=== PATIENT | male | born 1930 | race African-American/Black ===

== ENCOUNTER 2016-03-17 08:49 | Outpatient (CLI) | payer MEDICARE ==
[2016-03-17 09:33] LABS: Hemoglobin A1c 5.1 % (4.0-6.0)
[2016-03-17 09:40] LABS: #Basophils 0.1 thou/uL (0.0-0.2); #Eosinphils 0.2 thou/uL (0.0-0.7); #Lymphocytes 1.1 thou/uL (1.20-3.40); #Monocytes 0.5 thou/uL (0.11-0.59); #Neutrophils 3.2 thou/uL (1.40-6.50); %Basophils 1.9 % (0.0-1.0); %Lymphocytes 21.9 % (21.0-51.0); %Monocytes 10.4 % (0.0-10.0); %Neutrophils 62.8 % (42.0-75.0); Anisocytosis SLIGHT = 6-15 cells (100X) (0-5/hpf); Hemoglobin 11.5 g/dL (14.0-18.0); Large Platelets SLIGHT; MDiff Complete? YES; Macrocytosis SLIGHT = 6-15 cells (100X) (0-5/hpf); Mean Corpuscular HGB CONC 32.8 g/dL (32.0-36.0); Mean Corpuscular Hemoglobin 34.8 pg (27.0-31.0); PLT Morphology Comment Appears Decreased; Platelet Count 106 thou/uL (130-400); RBC Distribution Width 13.5 % (11.5-14.5); Red Blood Cell (RBC) Count 3.31 mill/uL (4.70-6.10); White Blood Cell (WBC) Count 5.1 thou/uL (4.8-10.8)
[2016-03-17 09:44] LABS: AST (SGOT) 25 U/L (5-34); Albumin 3.9 g/dL (3.4-4.8); Alkaline Phosphatase 104 U/L (40-150); Anion Gap 13 mmol/L (10-20); BUN (Urea Nitrogen) 25 mg/dL (8.4-25.7); Calc. Creatinine Clearance 0 mL/min (70-130); Calcium 9.4 mg/dL (7.8-10.44); Carbon Dioxide 27 mmol/L (23-31); Chloride 106 mmol/L (98-107); Estimated GFR-MDRD 77; Globulin 2.6 g/dL (2.4-3.5); Glucose 111 mg/dL (83-110); Potassium 4.2 mmol/L (3.5-5.1); Protein, Total 6.5 g/dL (5.8-8.1); Sodium 142 mmol/L (136-145)
[2016-03-17 17:24] LABS: Iron 55 ug/dL (65-175)
[2016-03-17 19:06] LABS: Bilirubin, Total 0.7 mg/dL (0.2-1.2)
[2016-03-17 20:21] LABS: ALT (SGPT) 17 U/L (0-55)
== END 2016-03-17 08:50 ==
LOC: MADLABBHPM 08:49
PROVIDERS: ATTEND Family Medicine
DX: D64.9 Anemia, unspecified (principal); E11.9 Type 2 diabetes mellitus without complications
CPT/HCPCS: 36415; 80053; 82728; 83036; 83540; 85025

== ENCOUNTER 2016-07-20 08:52 | Outpatient (CLI) | payer MEDICARE ==
[2016-07-20 09:23] LABS: Hemoglobin A1c 6.9 % (4.0-6.0)
[2016-07-20 09:43] LABS: ALT (SGPT) 17 U/L (8-55); AST (SGOT) 22 U/L (5-34); Albumin 3.5 g/dL (3.4-4.8); Alkaline Phosphatase 91 U/L (40-150); Anion Gap 12 mmol/L (10-20); BUN (Urea Nitrogen) 20 mg/dL (8.4-25.7); Bilirubin, Total 0.7 mg/dL (0.2-1.2); Calc. Creatinine Clearance 0 mL/min (70-130); Calcium 9.1 mg/dL (7.8-10.44); Carbon Dioxide 22 mmol/L (23-31); Cardiac Risk 2.4 (Less than 4.5); Chloride 109 mmol/L (98-107); Cholesterol 123 mg/dl (< 200 Desired); Estimated GFR-MDRD 78; Globulin 2.8 g/dL (2.4-3.5); Glucose 168 mg/dL (83-110); HDL Cholesterol 51 mg/dL (>60 Neg Risk); LDL Cholesterol, Calculated 56 mg/dL; Potassium 3.4 mmol/L (3.5-5.1); Protein, Total 6.3 g/dL (5.8-8.1); Sodium 140 mmol/L (136-145); Triglycerides 79 mg/dL (Less than 150)
[2016-07-20 10:06] LABS: Hemoglobin 10.9 g/dL (14.0-18.0); Mean Corpuscular HGB CONC 33.5 g/dL (32.0-36.0); Mean Corpuscular Hemoglobin 35.1 pg (27.0-31.0); RBC Distribution Width 12.3 % (11.5-14.5); Red Blood Cell (RBC) Count 3.11 mill/uL (4.70-6.10); White Blood Cell (WBC) Count 6.1 thou/uL (4.8-10.8)
[2016-07-20 10:07] LABS: Manual Diff?? YES; Mean Platelet Volume 12.2 fL (7.4-10.4); Platelet Count 80 thou/uL (130-400)
[2016-07-20 10:08] LABS: MDiff Complete? YES
[2016-07-20 10:18] LABS: Neutrophil 79 % (42-75)
[2016-07-20 10:19] LABS: Anisocytosis SLIGHT = 6-15 cells (100X) (0-5/hpf); Band 1 % (5-11); Eosinophils 1 % (0-10); Lymphocytes 12 % (21-51); Macrocytosis SLIGHT = 6-15 cells (100X) (0-5/hpf); Monocytes 7 % (0-10); PLT Morphology Comment Appears Decreased
[2016-07-20 19:04] LABS: Creatinine, Urine 121.68 mg/dL (63-166); Microalbumin Urine 33.6 mg/dL (0.5-50.0); Microalbumin/Creat Ratio 276.1 mg/g (Less than 30)
== END 2016-07-20 08:53 | disposition home or self-care (01) ==
LOC: MADLABBHPM 08:52
PROVIDERS: ATTEND Family Medicine
DX: E78.5 Hyperlipidemia, unspecified (principal); I10 Essential (primary) hypertension; E11.9 Type 2 diabetes mellitus without complications; D64.9 Anemia, unspecified
CPT/HCPCS: 36415; 80053; 80061; 82043; 82728; 83036; 83540; 85025

== ENCOUNTER 2017-05-16 09:04 | Outpatient (CLI) | payer MEDICARE ==
[2017-05-16 10:11] LABS: %Neutrophils 66.7 % (42.0-75.0); Hemoglobin 11.6 g/dL (14.0-18.0); Mean Corpuscular HGB CONC 32.1 g/dL (32.0-36.0); Mean Corpuscular Hemoglobin 34.4 pg (27.0-31.0); Mean Platelet Volume 11.3 fL (7.4-10.4); Platelet Count 88 thou/uL (130-400); RBC Distribution Width 11.7 % (11.5-14.5); Red Blood Cell (RBC) Count 3.38 mill/uL (4.70-6.10); White Blood Cell (WBC) Count 5.2 thou/uL (4.8-10.8)
[2017-05-16 10:12] LABS: #Basophils 0.1 thou/uL (0.0-0.2); #Eosinphils 0.1 thou/uL (0.0-0.7); #Monocytes 0.5 thou/uL (0.11-0.59); #Neutrophils 3.5 thou/uL (1.40-6.50); %Basophils 1.9 % (0.0-1.0); %Eosinophils 2.6 % (0.0-10.0); %Monocytes 9.8 % (0.0-10.0)
[2017-05-16 10:22] LABS: Anisocytosis SLIGHT = 6-15 cells (100X) (0-5/hpf)
[2017-05-16 10:23] LABS: PLT Morphology Comment Appears Decreased
[2017-05-16 10:31] LABS: INR-International Normal Ratio 1.2; PTT 27.6 SEC (22.9-36.1); Prothrombin Time 15.4 SEC (12.0-14.7)
== END 2017-05-16 09:05 | disposition home or self-care (01) ==
LOC: MADLABBHPM 09:04
PROVIDERS: ATTEND Family Medicine
DX: D69.6 Thrombocytopenia, unspecified (principal)
CPT/HCPCS: 36415; 85025; 85610; 85730

== ENCOUNTER 2017-10-12 10:26 | Outpatient (CLI) | payer MEDICARE ==
--- NOTE | 2017-10-12 11:46 | RAD ---
PA AND LATERAL VIEWS CHEST: HISTORY: Systolic CHF. Abnormal weight loss. FINDINGS: The heart size is normal. A left-sided AICD is seen. The lungs are well expanded without focal area s of consolidation, pneumothoraces, or pleural effusions. There are degenerative changes in the spin e. IMPRESSION: No radiographic evidence of acute cardiopulmonary process. POS: [facility]
== END 2017-10-12 10:27 | disposition home or self-care (01) ==
LOC: MADRAD 10:26
PROVIDERS: ATTEND Family Medicine
DX: I50.20 Unspecified systolic (congestive) heart failure (principal); R63.4 Abnormal weight loss
CPT/HCPCS: 71046